=== PATIENT | male | born 1970 | race Caucasian/White ===

== ENCOUNTER 2021-09-05 16:11 | Inpatient (IN) | payer BC ==
[~2021-09-05] VITALS: Ht 172.7 cm; Wt 104.5 kg
--- NOTE | 2021-09-05 16:11 | NUR ---
Pt. seen by
[2021-09-05] MEDS ORDERED: TDAP DIPH,PERTUSS,TET VAC/PF 0.5 ML DISP.SYRIN IM ONE ×2 (16:15→16:23)
[2021-09-05] MEDS ORDERED: NEOMY/BACITRA/POLYMYXIN B OINT UD PACKET TP ONE ×2 (16:15→16:22)
[2021-09-05] MEDS ORDERED: LIDOCAINE HCL 1% 20 ML VIAL IJ ONE (16:15)
[2021-09-05] MEDS ORDERED: LIDOCAINE HCL 1% 20 ML VIAL ONE (16:22)
--- NOTE | 2021-09-05 16:40 | NUR ---
Pt. taken down for head CT.
--- NOTE | 2021-09-05 17:33 | NUR ---
Dr Givens spoke to dr Akhtar(neurologist).
--- NOTE | 2021-09-05 18:04 | NUR ---
A call to [facility] message left to Dr. Husain.
[2021-09-05] MEDS ORDERED: AMLO-212 PO (18:12)
[2021-09-05] MEDS ORDERED: SEMA1.7P SQ (18:12)
[2021-09-05] MEDS ORDERED: TAMS-3 PO (18:12)
--- NOTE | 2021-09-05 18:20 | NUR ---
at bedside to [place] pt's head laceration.
--- NOTE | 2021-09-05 18:21 | NUR ---
HR of 86, sbp of 157/107. saturation of 97% Pt. AAOx4.
[2021-09-05 18:25] LABS: POTASSIUM 3.3 mmol/L (3.5-5.1)
--- NOTE | 2021-09-05 18:30 | NUR ---
After wound stappled antibiotic ointment applies and area left covered with 4X4.
[2021-09-05 18:37] LABS: MEAN CORPUSCULAR HEMOGLOBIN 31.5 uug (23.8-33.4); MEAN CORPUSCULAR VOLUME 88.4 fL (73.0-96.2); PLATELET COUNT (AUTO) 150 K/uL (152-348)
--- NOTE | 2021-09-05 19:09 | NUR ---
Report given to incoming shift.
[2021-09-05] MEDS ORDERED: levETIRAcetam IV 500 MG in IV DEXTROSE 5% 100 ML IV ONE (19:15)
--- NOTE | 2021-09-05 20:33 | NUR ---
GAVE REPORT TO ARYA THORPE.
[2021-09-05] MEDS ORDERED: ENALAPRILAT DIHYDRATE 1.25 MG/1 ML VIAL IV PRN (20:45)
[2021-09-05] MEDS ORDERED: HYDROCODONE/APAP 5-325MG TABLET PO PRN (20:45)
[2021-09-05] MEDS ORDERED: ACETAMINOPHEN 325 MG TABLET PO PRN (20:45)
[2021-09-05] MEDS ORDERED: ONDANSETRON 4 MG/2 ML VIAL IV PRN (20:45)
--- NOTE | 2021-09-05 20:59 | NUR ---
Pt. admitted to TELE ROOM 317 , under care of Dr. Husain Dx: subarachnoid hemorrhage Belongs List completed pt admitted in stable condition. No SOB or labored breathing, afebrile. A/O x4.
[2021-09-05 21:00] VITALS: BP 134/85
[2021-09-05] MEDS ORDERED: TAMSULOSIN HCL 0.4 MG CAP.SR.24H PO SCH (21:00)
--- NOTE | 2021-09-05 21:00 | NUR ---
Received pt from er via wheelchair. Under the care of Dr. Newell. Dx: Head trauma. Belonging list done. Admission process and care plan initiated. jail assessment done. Pt had alla on his guardian ad litem head. Safety and comfort provided. Will continue to monitor.
[2021-09-05] MEDS: AMLODIPINE 5 MG TABLET PO SCH (21:22)
[2021-09-06] VITALS: BP 111/66
[2021-09-06 04:00] VITALS: BP 112/62
--- NOTE | 2021-09-06 06:34 | NUR ---
Pt in no acute distress. Prescribed medication given and pt tolerated it well. Pt on sinus rhythm. .Pt Iv intact.Pt vital signs within normal limit. Safety and comfort provided. All needs are met. Will endorse to incoming nurse for continuity of care.
[2021-09-06 06:45] LABS: HEMATOCRIT 44.1 % (36.7-47.1); MEAN CORPUSCULAR HEMOGLOBIN 31.6 uug (23.8-33.4); MEAN CORPUSCULAR VOLUME 88.5 fL (73.0-96.2); PLATELET COUNT (AUTO) 145 K/uL (152-348)
[2021-09-06 07:07] LABS: BILIRUBIN,TOTAL 0.8 mg/dL (0.2-1.0); CREATININE 1.1 mg/dL (0.6-1.3); MAGNESIUM 1.9 mg/dL (1.8-2.4); PHOSPHOROUS 4.5 mg/dL (2.5-4.9); POTASSIUM 3.7 mmol/L (3.5-5.1); TOTAL PROTEIN, SERUM 6.9 g/dL (6.4-8.2)
[2021-09-06] MEDS: AMLODIPINE 5 MG TABLET PO SCH (09:24)
--- NOTE | 2021-09-06 11:20 | NUR ---
Patient resting in bed with a family member at bedside. Complained on mild pain on the back of his head and asked for Tylenol. Tylenol was administered. Will continue to monitor.
[2021-09-06 11:53] VITALS: BP 121/87
--- NOTE | 2021-09-06 12:00 | NUR ---
Neuro assessment done, no neuro deficit noted. Will continue to monitor.
[2021-09-06 15:55] VITALS: BP 129/89
--- NOTE | 2021-09-06 20:05 | NUR ---
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 Patient took all discharge papers, and all belonings, rode on private car.
== END 2021-09-06 20:11 | disposition home or self-care (01) | DRG 87 ==
LOC: ER 16:11 → TELE3 20:39
PROVIDERS: ADMIT Family Medicine; ATTEND Family Medicine
PROC: 0HQ0XZZ Repair Scalp Skin, External Approach (ICD-10-PCS; principal; 2021-09-05)
DX: S06.6X0A Traumatic subarachnoid hemorrhage without loss of consciousness, initial encounter (principal); S01.01XA Laceration without foreign body of scalp, initial encounter; R40.2362 Coma scale, best motor response, obeys commands, at arrival to emergency department; R40.2142 Coma scale, eyes open, spontaneous, at arrival to emergency department; R40.2252 Coma scale, best verbal response, oriented, at arrival to emergency department; W01.198A Fall on same level from slipping, tripping and stumbling with subsequent striking against other object, initial encounter; Y92.34 Swimming pool (public) as the place of occurrence of the external cause; E87.6 Hypokalemia; I10 Essential (primary) hypertension; R73.9 Hyperglycemia, unspecified; N40.0 Benign prostatic hyperplasia without lower urinary tract symptoms; G47.33 Obstructive sleep apnea (adult) (pediatric); J45.20 Mild intermittent asthma, uncomplicated; D69.6 Thrombocytopenia, unspecified; E66.01 Morbid (severe) obesity due to excess calories; Z68.35 Body mass index [BMI] 35.0-35.9, adult; Z20.822 Contact with and (suspected) exposure to COVID-19
CPT/HCPCS: 36415; 70450; 71045; 83735; 84100; 85025; 85610; 86850; 86900; 86901; 90715; 93005; 94660; A4663; G0378; J1953; J3490